=== PATIENT | female | born 1970 | race American Indian/Alaskan Native ===

== ENCOUNTER 2017-01-17 11:52 | Inpatient (IN) | payer BC ==
--- NOTE | 2017-01-17 12:50 | C.PDOC ---
History Of Present Illness 46 y/o female presents to the ED with complains of lower back pain radiating to bilateral legs since yesterday morning. Pt also reports cough, fever, malaise since last night. Pt took ibuprofen at home. Denies numbness, weakness, urinary incontinence or any other complaints. Time Seen by Provider: 01/17/17 12:34 Chief Complaint (Nursing): Flu-like Symptoms History Per: Patient History/Exam Limitations: no limitations Onset/Duration Of Symptoms: Hrs Current Symptoms Are (Timing): Still Present Sick Contacts (Context): None Associated Symptoms: Fever, Cough. denies: Vomiting, Diarrhea Severity: Mild Recent travel outside of the [place]: No Past Medical History Reviewed: Historical Data, Nursing Documentation, Vital Signs Vital Signs: Last Vital Signs Temp 97.2 F L 01/18/17 07:22 Pulse 88 01/18/17 12:16 Resp 20 01/18/17 07:22 BP 126/72 01/18/17 07:22 Pulse Ox 97 01/18/17 07:22 - Medical History PMH: Gastritis, HTN Surgical History: Cholecystectomy Family History: States: Unknown Family Hx - Social History Hx Tobacco Use: No Hx Alcohol Use: No Hx Substance Use: No - Immunization History Hx Tetanus Toxoid Vaccination: No Hx Influenza Vaccination: No Hx Pneumococcal Vaccination: No Review Of Systems Except As Marked, All Systems Reviewed And Found Negative. Constitutional: Positive for: Fever, Malaise Cardiovascular: Negative for: Chest Pain Respiratory: Positive for: Cough. Negative for: Shortness of Breath Genitourinary: Negative for: Incontinence Musculoskeletal: Positive for: Back Pain. Negative for: Neck Pain Neurological: Negative for: Weakness, Numbness Physical Exam - Physical Exam Appears: Non-toxic, No Acute Distress Skin: Warm, Dry, No Rash Head: Atraumatic, Normacephalic Eye(s): bilateral: PERRL Ear(s): Bilateral: Normal Nose: No Epistaxis Oral Mucosa: Moist Tongue: No Swelling Lips: No Swelling Throat: No Erythema, No Exudate Neck: Normal ROM, Supple Cardiovascular: Rhythm Regular, No Murmur Respiratory: Normal Breath Sounds, No Decreased Breath Sounds, No Accessory Muscle Use, No Rales, No Rhonchi, No Wheezing Gastrointestinal/Abdominal: Soft, No Tenderness, No Distention, No Guarding, No Rebound Back: Vertebral Tenderness (lumbar), Paraspinal Tenderness (diffuse lower back) Extremity: No Swelling Extremity: Bilateral: Atraumatic Pulses: Left Radial: Normal, Right Radial: Normal Neurological/Psych: Oriented x3, Normal Speech, Normal Cranial Nerves, No Cerebellar Signs, Normal Motor, Normal Sensation, Normal Reflexes, Other (no focal deficits) ED Course And Treatment - Laboratory Results Result Diagrams: 01/18/17 08:13 01/18/17 08:13 O2 Sat by Pulse Oximetry: 95 (room air) Pulse Ox Interpretation: Normal - Other Rad Lumbar spine XR X-Ray: Viewed By Me, Read By Radiologist Interpretation: Accession No. : [id number]. Patient Name / ID : JARRELL PHELAN / [id number]. Exam Date : 01/17/2017 14:14:42 ( Approved ). Study Comment : Sex / Age : F / 46Y. Creator : Tonny Greene MD. Dictator : Tonny Greene MD. Shirt Trimmer : Financial Management : Tonny Greene MD. Approver2 : Report Date : 01/17/2017 14:45:12. My Comment : . PROCEDURE: Radiographs of the Lumbar Spine. HISTORY: pain fever. COMPARISON: No prior. FINDINGS: BONES: Vertebral bodies maintained in height. Transverse processes and posterior elements are intact. There is lucency seen projecting on the L3 vertebra, likely bowel gas. Mild dextroscoliosis. No listhesis. DISC SPACES: Disc spaces maintained in height. OTHER FINDINGS: Calcified uterine fibroid. IMPRESSION: Mild dextroscoliosis. Calcified uterine fibroid. No evidence of fracture or degenerative disc disease. CXR X-Ray: Viewed By Me, Read By Radiologist Interpretation: Accession No. : [id number]. Patient Name / ID : JARRELL PHELAN / [id number]. Exam Date : 01/17/2017 14:14:34 ( Approved ). Study Comment : Sex / Age : F / 46Y. Creator : Canelo Mai MD. Dictator : Canelo Mai MD. Shirt Trimmer : Financial Management : Canelo Mai MD. Approver2 : Report Date : 01/17/2017 14:45:21. My Comment : . HISTORY: cough fever. COMPARISON: 10/04/2016. TECHNIQUE: Chest PA and lateral. FINDINGS: LUNGS: No active pulmonary disease. PLEURA: No significant pleural effusion identified. No pneumothorax apparent. CARDIOVASCULAR: No radiographic findings to suggest acute or significant cardiovascular disease. OSSEOUS STRUCTURES: No significant abnormalities. VISUALIZED UPPER ABDOMEN: Normal. OTHER FINDINGS: None. IMPRESSION: No active disease. No significant interval change compared to the prior examination(s). Progress Note: Plan: labs, CXR, XR lumbar, UA, toradol, tylenol, IV fluids Medical Decision Making Medical Decision Makin mobile service rv technician called pt will not fit in the scanner. will order CT instead. [address] Branham will admit req ID consulte Dr Webb [id number] Webb pt reports she had received "injections" in her neck before for pain, the last was beginning of November. she denies any neck pain at this time. ADDENDUM: Study performed following intravenous administration 100 cc Omnipaque 350. Total exam DLP 1799.25 mGy per cm. [ Addendum Report Added by Canelo Mai MD at 01/17/2017 17:11:46 ] PROCEDURE: CT Lumbar Spine without contrast HISTORY: back pain fever eval for abscess COMPARISON: None. TECHNIQUE: Axial computed tomography images were obtained of the lumbar spine without the use of intravenous contrast. Coronal and sagittal reformatted images were created and reviewed. Radiation dose: Total exam DLP = mGy-cm. This CT exam was performed using one or more of the following dose reduction techniques: Automated exposure control, adjustment of the mA and/or kV according to patient size, and/or use of iterative reconstruction technique. FINDINGS: VERTEBRAE: Unremarkable. No fracture. Normal alignment. DISCS/SPINAL CANAL/NEURAL FORAMINA: L1-2: Unremarkable. L2-3: Unremarkable. L3-4: Unremarkable. L4-5: Unremarkable. L5-S1: Unremarkable. PARASPINAL SOFT TISSUES: Unremarkable. OTHER FINDINGS: Enlarged heterogeneous uterus, anteverted with large calcified fibroid measuring 4.2 cm. IMPRESSION: Unremarkable CT of Lumbar Spine. Adjacent paravertebral structures as visualized within normal limits including kidneys, pancreas, urinary bladder. Disposition - Disposition Disposition: HOSPITALIZED Disposition Time: 17:37 Condition: STABLE - Clinical Impression Clinical Impression: leukocytosis bandemia hypokalemia - Scribe Statement The provider has reviewed the documentation as recorded by the Saúl Zhang Provider Attestation: All medical record entries made by the Saúl were at my direction and personally dictated by me. I have reviewed the chart and agree that the record accurately reflects my personal performance of the history, physical exam, medical decision making, and the department course for this patient. I have also personally directed, reviewed, and agree with the discharge instructions and disposition.
[2017-01-17] MEDS ORDERED: Sodium Chloride 0.9% 1,000 ML IV ONE ×2 (13:21→14:10)
[2017-01-17] MEDS ORDERED: Sodium Chloride 0.9% 250 ML IV ONE (13:31)
[2017-01-17 14:01] LABS: VENOUS BLOOD GAS BASE EXCESS 6.1 mmol/L (0.0-2.0); VENOUS BLOOD GAS PCO2 46 mmHg (40-60); VENOUS BLOOD PH 7.44 (7.32-7.43)
[2017-01-17 14:02] LABS: BASO # 0.1 K/uL (0.0-0.2); BASO % 0.3 % (0.0-2.0); HEMATOCRIT 37.5 % (34.0-47.0); LYMPH # 0.7 K/uL (1.0-4.3); LYMPH % 3.1 % (20.0-40.0); MEAN CELL VOLUME 85.8 fL (81.0-99.0); MEAN CORPUSCULAR HGB CONC 33.7 g/dL (33.0-37.0); MEAN PLATELET VOLUME 7.9 fL (7.2-11.7); MONO # 0.9 K/uL (0.0-0.8); PLATELET COUNT 289 K/uL (130-400); RED CELL DISTRIBUTION WIDTH 13.8 % (11.5-14.5); WHITE BLOOD COUNT 22.2 K/uL (4.8-10.8)
[2017-01-17 14:10] LABS: RBC URINE 18 /hpf (0-3); URINE BACTERIA RARE (<OCC); URINE BILIRUBIN NEGATIVE (NEGATIVE); URINE BLOOD 1+ (NEGATIVE); URINE COLOR Yellow (YELLOW); URINE GLUCOSE (UA) 1+ mg/dL (Normal); URINE KETONE NEGATIVE (NEGATIVE); URINE LEUKOCYTE ESTERASE NEG Leu/uL (Negative); URINE PROTEIN NEGATIVE (NEGATIVE); WBC URINE 1 /hpf (0-5)
[2017-01-17 14:14] LABS: CHLORIDE 95 mmol/L (98-107)
[2017-01-17 14:15] LABS: POTASSIUM 3.2 mmol/L (3.6-5.2); SODIUM 133 mmol/L (132-148)
[2017-01-17 14:17] LABS: ALB/GLOB RATIO 0.9 (1.0-2.1); ALKALINE PHOSPHATASE 97 U/L (38-126); AST/SGOT 25 U/L (14-36); BILIRUBIN,TOTAL 0.8 mg/dL (0.2-1.3); BLOOD UREA NITROGEN 8 mg/dL (7-17); CARBON DIOXIDE 27 mmol/L (22-30); GFR AFRICAN-AMERICAN > 60; GLUCOSE,RANDOM 193 mg/dL (65-105); TOTAL PROTEIN 7.7 g/dL (6.3-8.3)
[2017-01-17 14:18] LABS: ALT/SGPT 28 U/L (9-52)
[2017-01-17 14:33] LABS: REACTIVE LYMPHOCYTES 1 % (0-0); TOTAL CELLS COUNTED 100
[2017-01-17 14:34] LABS: NEUTROPHIL 77 % (50-75)
[2017-01-17 14:35] LABS: GIANT PLATELETS PRESENT
--- NOTE | 2017-01-17 14:47 | RAD ---
HISTORY: cough fever COMPARISON: 10/04/2016. TECHNIQUE: Chest PA and lateral FINDINGS: LUNGS: No active pulmonary disease. PLEURA: No significant pleural effusion identified. No pneumothorax apparent. CARDIOVASCULAR: No radiographic findings to suggest acute or significant cardiovascular disease. OSSEOUS STRUCTURES: No significant abnormalities. VISUALIZED UPPER ABDOMEN: Normal. OTHER FINDINGS: None. IMPRESSION: No active disease. No significant interval change compared to the prior examination(s).
--- NOTE | 2017-01-17 14:47 | RAD ---
PROCEDURE: Radiographs of the Lumbar Spine. HISTORY: pain fever COMPARISON: No prior. FINDINGS: BONES: Vertebral bodies maintained in height. Transverse processes and posterior elements are intact. There is lucency seen projecting on the L3 vertebra, likely bowel gas. Mild dextroscoliosis. No listhesis. DISC SPACES: Disc spaces maintained in height. OTHER FINDINGS: Calcified uterine fibroid. IMPRESSION: Mild dextroscoliosis. Calcified uterine fibroid. No evidence of fracture or degenerative disc disease.
[2017-01-17 15:06] LABS: ERYTHROCYTE SEDIMENTATION RATE 40 mm/hr (0-20)
[2017-01-17 16:17] LABS: DRAW SITE VENOUS; VENOUS BLOOD GAS BASE EXCESS 5.3 mmol/L (0.0-2.0); VENOUS BLOOD GAS PCO2 49 mmHg (40-60); VENOUS BLOOD PH 7.41 (7.32-7.43)
[2017-01-17] MEDS ORDERED: Iohexol 350mg/ml 100 ML ONE (16:18)
[2017-01-17 16:33] LABS: VENOUS BLOOD GAS BASE EXCESS 4.5 mmol/L (0.0-2.0); VENOUS BLOOD GAS PCO2 49 mmHg (40-60)
--- NOTE | 2017-01-17 16:58 | CT ---
PROCEDURE: CT Lumbar Spine without contrast HISTORY: back pain fever eval for abscess COMPARISON: None. TECHNIQUE: Axial computed tomography images were obtained of the lumbar spine without the use of intravenous contrast. Coronal and sagittal reformatted images were created and reviewed. Radiation dose: Total exam DLP = mGy-cm. This CT exam was performed using one or more of the following dose reduction techniques: Automated exposure control, adjustment of the mA and/or kV according to patient size, and/or use of iterative reconstruction technique. FINDINGS: VERTEBRAE: Unremarkable. No fracture. Normal alignment. DISCS/SPINAL CANAL/NEURAL FORAMINA: L1-2: Unremarkable. L2-3: Unremarkable. L3-4: Unremarkable. L4-5: Unremarkable. L5-S1: Unremarkable. PARASPINAL SOFT TISSUES: Unremarkable. OTHER FINDINGS: Enlarged heterogeneous uterus, anteverted with large calcified fibroid measuring 4.2 cm. IMPRESSION: Unremarkable CT of Lumbar Spine. Adjacent paravertebral structures as visualized within normal limits including kidneys, pancreas, urinary bladder.
[2017-01-17] MEDS ORDERED: Azithromycin 500 MG in Sodium Chloride 0.9% 250 ML IVPB STA (17:21)
[2017-01-17] MEDS ORDERED: cefTRIAXone IV 1 gm in Dextros 50 ML IVPB ONE (17:27)
[2017-01-17] MEDS ORDERED: Azithromycin 500mg/250ML NS 500 MG/250 ML BAG IVPB ONE (17:49)
[2017-01-17] MEDS ORDERED: Potassium Chloride 20 mEq ER Tab PO STA (17:55)
[2017-01-17] MEDS ORDERED: Potassium Chloride 20 mEq ER Tab PO ONE (18:27)
[2017-01-18] MEDS: cefTRIAXone IV 1 gm in Dextros 50 ML IVPB SCH ×2 (05:22→17:40)
[2017-01-18 08:24] LABS: BASO % 0.2 % (0.0-2.0); HEMATOCRIT 33.1 % (34.0-47.0); LYMPH # 1.3 K/uL (1.0-4.3); LYMPH % 10.6 % (20.0-40.0); MEAN CELL VOLUME 85.4 fL (81.0-99.0); MEAN CORPUSCULAR HEMOGLOBIN 29.1 pg (27.0-31.0); MEAN PLATELET VOLUME 7.7 fL (7.2-11.7); MONO # 0.8 K/uL (0.0-0.8); MONO % 6.8 % (0.0-10.0); NRBC % 0.2 % (0.0-2.0); RED CELL DISTRIBUTION WIDTH 14.1 % (11.5-14.5)
[2017-01-18 08:30] LABS: CHLORIDE 99 mmol/L (98-107); POTASSIUM 3.3 mmol/L (3.6-5.2); SODIUM 137 mmol/L (132-148)
[2017-01-18 08:32] LABS: ALB/GLOB RATIO 0.8 (1.0-2.1); AST/SGOT 18 U/L (14-36); BILIRUBIN,TOTAL 0.6 mg/dL (0.2-1.3); CARBON DIOXIDE 30 mmol/L (22-30); GFR AFRICAN-AMERICAN > 60; TOTAL PROTEIN 6.7 g/dL (6.3-8.3)
[2017-01-18 08:33] LABS: ALKALINE PHOSPHATASE 85 U/L (38-126); ALT/SGPT 25 U/L (9-52); BLOOD UREA NITROGEN 6 mg/dL (7-17); CALCIUM 8.4 mg/dl (8.6-10.4); GLUCOSE,RANDOM 128 mg/dL (65-105)
[2017-01-18] MEDS: Pantoprazole 40 mg EC Tab PO SCH (09:31)
[2017-01-18] MEDS: Metoprolol Succinate 50 mg XL Tab PO SCH (09:31)
[2017-01-18] MEDS: Potassium Chloride 20 mEq ER Tab PO SCH ×2 (09:31→17:39)
[2017-01-18] MEDS: Enoxaparin 40 mg Syringe SC SCH (10:15)
--- NOTE | 2017-01-18 14:24 | CP.PCM.HP ---
Past Patient History - Past Social History Smoking Status: Never Smoked - CARDIAC Hx Hypertension: Yes - MUSCULOSKELETAL/RHEUMATOLOGICAL Hx Falls: No - GASTROINTESTINAL Hx Gastritis: Yes - PSYCHIATRIC Hx Substance Use: No - SURGICAL HISTORY Hx Cholecystectomy: Yes - ANESTHESIA Hx Anesthesia: Yes Hx Anesthesia Reactions: No Meds Allergies/Adverse Reactions: Allergies Allergy/AdvReac Type Severity Reaction Status Date / Time No Known Allergies Allergy Verified 01/17/17 12:16 Results - Vital Signs Recent Vital Signs: Last Vital Signs Temp 97.2 F L 01/18/17 07:22 Pulse 88 01/18/17 12:16 Resp 20 01/18/17 07:22 BP 126/72 01/18/17 07:22 Pulse Ox 95 01/18/17 13:40 - Labs Result Diagrams: 01/18/17 08:13 01/18/17 08:13 Labs: Laboratory Results - last 24 hr 01/18/17 01/18/17 08:13 08:13 WBC 12.0 H RBC 3.87 Hgb 11.3 Hct 33.1 L MCV 85.4 MCH 29.1 MCHC 34.0 RDW 14.1 Plt Count 275 MPV 7.7 Neut % (Auto) 82.4 H Lymph % (Auto) 10.6 L [place] % (Auto) 6.8 Eos % (Auto) 0.0 Baso % (Auto) 0.2 Neut # 9.9 H Lymph # 1.3 [place] # 0.8 Eos # 0.0 Baso # 0.0 Sodium 137 Potassium 3.3 L Chloride 99 Carbon Dioxide 30 Anion Gap 11 BUN 6 L Creatinine 0.6 L Est GFR ( Amer) > 60 Est GFR (Non-Af Amer) > 60 Random Glucose 128 H Calcium 8.4 L Total Bilirubin 0.6 AST 18 ALT 25 Alkaline Phosphatase 85 Total Protein 6.7 Albumin 2.9 L Globulin 3.8 Albumin/Globulin Ratio 0.8 L Assessment & Plan - Assessment and Plan (Free Text) Plan: clinically same iv antibitic monitor for fever or wbc as ordered
[2017-01-19] MEDS: cefTRIAXone IV 1 gm in Dextros 50 ML IVPB SCH ×2 (04:56→17:14)
[2017-01-19] MEDS: Enoxaparin 40 mg Syringe SC SCH (09:32)
[2017-01-19] MEDS: Metoprolol Succinate 50 mg XL Tab PO SCH (09:32)
[2017-01-19] MEDS: Potassium Chloride 20 mEq ER Tab PO SCH ×2 (09:32→17:31)
[2017-01-19] MEDS: Pantoprazole 40 mg EC Tab PO SCH (09:32)
--- NOTE | 2017-01-19 13:32 | CP.PCM.PN ---
Subjective - Date & Time of Evaluation Date of Evaluation: 01/19/17 Time of Evaluation: 14:00 - Subjective Subjective: clinically same Objective - Vital Signs/Intake and Output Vital Signs (last 24 hours): Temp Pulse Resp BP Pulse Ox 98.2 F 62 20 114/74 96 01/19/17 08:25 01/19/17 08:25 01/19/17 08:25 01/19/17 08:25 01/19/17 08:25 - Medications Medications: Current Medications Acetaminophen (Tylenol 325mg Tab) 650 mg PO Q8 PRN PRN Reason: fever above 101 Last Admin: 01/19/17 07:03 Dose: 650 mg Enoxaparin Sodium (Lovenox) 40 mg SC DAILY [facility] Last Admin: 01/19/17 09:32 Dose: 40 mg Hydrochlorothiazide (Hydrodiuril) 25 mg PO DAILY [facility] Last Admin: 01/18/17 10:18 Dose: Not Given Ceftriaxone Sodium (Rocephin Iv 1 Gm Duplex) 50 mls @ 100 mls/hr IVPB Q12H [facility] Last Admin: 01/19/17 04:56 Dose: 100 mls/hr Ketorolac Tromethamine (Toradol) 15 mg IVP Q8 [facility] Last Admin: 01/19/17 09:34 Dose: Not Given Metoprolol Succinate (Toprol Xl) 50 mg PO DAILY [facility] Last Admin: 01/19/17 09:32 Dose: 50 mg Pantoprazole Sodium (Protonix Ec Tab) 40 mg PO DAILY [facility] Last Admin: 01/19/17 09:32 Dose: 40 mg Potassium Chloride (K-Dur 20 Meq Er Tab) 20 meq PO BID [facility] Last Admin: 01/19/17 09:32 Dose: 20 meq - Labs Labs: 01/18/17 08:13 01/18/17 08:13 - Constitutional Appears: Well - Head Exam Head Exam: ATRAUMATIC, NORMAL INSPECTION, NORMOCEPHALIC - Eye Exam Eye Exam: EOMI, Normal appearance, PERRL Pupil Exam: NORMAL ACCOMODATION, PERRL - ENT Exam ENT Exam: Mucous Membranes Moist, Normal Exam - Neck Exam Neck Exam: Full ROM, Normal Inspection. absent: Lymphadenopathy - Respiratory Exam Respiratory Exam: Decreased Breath Sounds - Cardiovascular Exam Cardiovascular Exam: REGULAR RHYTHM, +S1, +S2 - GI/Abdominal Exam GI & Abdominal Exam: Soft, Diminished Bowel Sounds - Rectal Exam Rectal Exam: Deferred
[2017-01-19 14:00] LABS: BASO % 0.3 % (0.0-2.0); EOS # 0.1 K/uL (0.0-0.7); HEMATOCRIT 34.5 % (34.0-47.0); LYMPH # 2.6 K/uL (1.0-4.3); LYMPH % 36.9 % (20.0-40.0); MEAN CORPUSCULAR HEMOGLOBIN 29.1 pg (27.0-31.0); MEAN CORPUSCULAR HGB CONC 33.9 g/dL (33.0-37.0); MEAN PLATELET VOLUME 8.1 fL (7.2-11.7); MONO # 0.8 K/uL (0.0-0.8); MONO % 11.9 % (0.0-10.0); NRBC % 0.1 % (0.0-2.0); RED CELL DISTRIBUTION WIDTH 14.1 % (11.5-14.5); WHITE BLOOD COUNT 7.1 K/uL (4.8-10.8)
[2017-01-19 14:10] LABS: CHLORIDE 99 mmol/L (98-107); SODIUM 137 mmol/L (132-148)
[2017-01-19 14:11] LABS: POTASSIUM 3.4 mmol/L (3.6-5.2)
[2017-01-19 14:13] LABS: GFR AFRICAN-AMERICAN > 60
[2017-01-19 14:14] LABS: BLOOD UREA NITROGEN 6 mg/dL (7-17); CALCIUM 8.6 mg/dl (8.6-10.4); CARBON DIOXIDE 30 mmol/L (22-30); GLUCOSE,RANDOM 148 mg/dL (65-105)
--- NOTE | 2017-01-19 16:40 | CP.PCM.CON ---
History of Present Illness - History of Present Illness History of Present Illness: admitted with flu like symptoms and back pain cultures pending iv rx in poorgress Review of Systems - Constitutional Constitutional: As Per HPI - EENT Eyes: absent: As Per HPI, Blind Spots, Blurred Vision, Change in Vision, Decreased Night Vision, Diplopia, Discharge, Dry Eye, Exophthalmos, Floaters, Irritation, Itchy Eyes, Loss of Peripheral Vision, Pain, Photophobia, Requires Corrective Lenses, Sees Flashes, Spots in Vision, Tunnel Vision, Other Visual Disturbances, Loss of Vision, Other Ears: absent: As Per HPI, Decreased Hearing, Ear Discharge, Ear Pain, Tinnitus, Abnormal Hearing, Disequilibrium, Dizziness, Other Nose/Mouth/Throat: absent: As Per HPI, Epistaxis, Nasal Congestion, Nasal Discharge, Nasal Obstruction, Nasal Trauma, Nose Pain, Post Nasal Drip, Sinus Pain, Sinus Pressure, Bleeding Gums, Change in Voice, Dental Pain, Dry Mouth, Dysphagia, Halitosis, Hoarsness, Lip Swelling, Mouth Lesions, Mouth Pain, Odynophagia, Sore Throat, Throat Swelling, Tongue Swelling, Facial Pain, Neck Pain, Neck Mass, Other - Breasts Breasts: absent: As Per HPI, Change in Shape, Mass, Pain, Nipple Discharge, Nipple Inversion, Skin Changes, Swelling, Other - Cardiovascular Cardiovascular: absent: As Per HPI, Acrocyanosis, Chest Pain, Chest Pain at Rest , Chest Pain with Activity, Claudication, Diaphoresis, Dyspnea, Dyspnea on Exertion, Edema, Irregular Heart Rhythm, Pain Radiating to Arm/Neck/Jaw, Leg Edema, Leg Ulcers, Lightheadedness, Orthopnea, Palpitations, Paroxysmal Nocturnal Dyspnea, Pedal Edema, Radiating Pain, Rapid Heart Rate, Slow Heart Rate, Syncope, Other - Respiratory Respiratory: absent: As Per HPI, Cough, Dyspnea, Hemoptysis, Dyspnea on Exertion , Wheezing, Snoring, Stridor, Pain on Inspiration, Chest Congestion, Excessive Mucous Production, Change in Mucous Color, Pain with Coughing, Other - Gastrointestinal Gastrointestinal: absent: As Per HPI, Abdominal Pain, Belching, Bloating, Change in Bowel Habits, Change in Stool Character, Coffee Ground Emesis, Constipation, Cramping, Diarrhea, Dyspepsia, Dysphagia, Early Satiety, Excessive Flatus, Fecal Incontinence, Heartburn, Hematemesis, Hematochezia, Loose Stools, Melena, Nausea, Odynophagia, Temesmus, Vomiting, Other - Genitourinary Genitourinary: absent: As Per HPI, Change in Urinary Stream, Difficulty Urinating, Dysuria, Flank Pain, Hematuria, Pyuria, Nocturia, Urinary Incontinence, Urinary Frequency, Urinary Hesitance, Urinary Urgency, Voiding Freq/Small Amts, Freq UTI, Hx Renal/Bladder Calculi, Hx /Renal Surgery, Bladder Distension, Other - Reproductive: Female Reproductive:Female: absent: As Per HPI, Amenorrhea, Amenorrhea/ Control, Currently Menstual, Cycle <21 Days, Cycle >35 Days, Cycle Variable, Menses 1-7 Days, Menses >/= 8 Days, Menses Variable, Cycle > 4 Weeks Between, No Menses for 6 Months, Heavy Menses, Light Menses, Normal Menses, Spotting Between Cycles , S/P Hysterectomy, Menopausal, Post Menopausal, Premenarche, Abnormal Vaginal Bleeding, Dysmenorrhea, Dyspareunia, Genital Lesions, Genital Pruritis, Pelvic Pain, Prolapse Symptoms, Sexual Dysfunction, Vaginal Discharge, Vaginal Dryness , Vaginal Odor, Vaginal Pruritis, Other - Menstruation Menstruation: absent: As Per HPI, Amenorrhea, Amenorrhea/ Control, Currently Menstual, Cycle <21 Days, Cycle >35 Days, Cycle Variable, Menses 1-7 Days, Menses >/= 8 Days, Menses Variable, Cycle > 4 Weeks Between, No Menses for 6 Months, Heavy Menses, Light Menses, Normal Menses, Spotting Between Cycles , S/P Hysterectomy, Menopausal, Post Menopausal, Premenarche, Abnormal Vaginal Bleeding, Dysmenorrhea, Other - Musculoskeletal Musculoskeletal: As Per HPI - Integumentary Integumentary: absent: As Per HPI, Acne, Alopecia, Bleeding Lesions, Change in Hair, Change in Nails, Change in Pigmentation, Changing Lesions, Dry Skin, Erythema, Furuncle, Hirsutism, Lesions, New Lesions, Non-Healing Lesions, Photosensitivity, Pruritus, Rash, Skin Pain, Skin Ulcer, Sores, Striae, Swelling , Unusual Bruising, Wounds, Jaundice, Other - Neurological Neurological: absent: As Per HPI, Abnormal Gait, Abnormal Hearing, Abnormal Movements, Abnormal Speech, Behavioral Changes, Burning Sensations, Confusion, Convulsions, Disequilibrium, Dizziness, Numbness, Focal Weakness, Frequent Falls , Headaches, Lack of Coordination, Loss of Vision, Memory Loss, Paresthesias, Radicular Pain, Restless Legs, Sensory Deficit, Syncope, Tingling, Tremor, Vertigo, Weakness, Other Visual Disturbances, Other - Psychiatric Psychiatric: absent: As Per HPI, Abnormal Sleep Pattern, Anhedonia, Anxiety, Auditory Hallucinations, Behavioral Changes, Change in Appetite, Change in Libido, Confusion, Depression, Difficulty Concentrating, Hallucinations, Homicidal Ideation, Hopelessness, Irritability, Memory Loss, Mood Swings, Panic Attacks, Paranoia, Suicidal Ideation, Visual Hallucinations, Tactile Hallucinations, Other - Endocrine Endocrine: absent: As Per HPI, Change in Body Appearance, Change in Libido, Cold Intolorance, Deepening of Voice, Excessive Sweating, Fatigue, Flushing, Heat Intolorance, Increase in Ring/Shoe/Hat Size, Palpitations, Polydipsia, Polyphagia, Polyuria, Other - Hematologic/Lymphatic Hematologic: absent: As Per HPI, Easy Bleeding, Easy Bruising, Lymphadenopathy, Other Past Patient History - Past Social History Smoking Status: Never Smoked - CARDIAC Hx Hypertension: Yes - MUSCULOSKELETAL/RHEUMATOLOGICAL Hx Falls: No - GASTROINTESTINAL Hx Gastritis: Yes - PSYCHIATRIC Hx Substance Use: No - SURGICAL HISTORY Hx Cholecystectomy: Yes - ANESTHESIA Hx Anesthesia: Yes Hx Anesthesia Reactions: No Meds Allergies/Adverse Reactions: Allergies Allergy/AdvReac Type Severity Reaction Status Date / Time No Known Allergies Allergy Verified 01/17/17 12:16 - Medications Medications: Current Medications Acetaminophen (Tylenol 325mg Tab) 650 mg PO Q8 PRN PRN Reason: fever above 101 Last Admin: 01/19/17 07:03 Dose: 650 mg Enoxaparin Sodium (Lovenox) 40 mg SC DAILY [facility] Last Admin: 01/19/17 09:32 Dose: 40 mg Hydrochlorothiazide (Hydrodiuril) 25 mg PO DAILY [facility] Last Admin: 01/18/17 10:18 Dose: Not Given Ceftriaxone Sodium (Rocephin Iv 1 Gm Duplex) 50 mls @ 100 mls/hr IVPB Q12H [facility] Last Admin: 01/19/17 04:56 Dose: 100 mls/hr Ketorolac Tromethamine (Toradol) 15 mg IVP Q8 [facility] Last Admin: 01/19/17 09:34 Dose: Not Given Metoprolol Succinate (Toprol Xl) 50 mg PO DAILY [facility] Last Admin: 01/19/17 09:32 Dose: 50 mg Pantoprazole Sodium (Protonix Ec Tab) 40 mg PO DAILY [facility] Last Admin: 01/19/17 09:32 Dose: 40 mg Potassium Chloride (K-Dur 20 Meq Er Tab) 20 meq PO BID [facility] Last Admin: 01/19/17 09:32 Dose: 20 meq Physical Exam - Constitutional Appears: Non-toxic, Chronically Ill - Head Exam Head Exam: ATRAUMATIC, NORMAL INSPECTION, NORMOCEPHALIC - Eye Exam Eye Exam: EOMI, PERRL. absent: Scleral icterus - ENT Exam ENT Exam: Mucous Membranes Dry, Normal External Ear Exam - Neck Exam Neck exam: Negative for: Lymphadenopathy, Thyromegaly - Respiratory Exam Respiratory Exam: Decreased Breath Sounds, Clear to Auscultation Bilateral - Cardiovascular Exam Cardiovascular Exam: REGULAR RHYTHM, +S1, +S2 - GI/Abdominal Exam GI & Abdominal Exam: Diminished Bowel Sounds, Soft. absent: Guarding, Rebound, Rigid, Tenderness - Rectal Exam Rectal Exam: Deferred - Exam Exam: NORMAL INSPECTION - Extremities Exam Extremities exam: Negative for: pedal edema - Back Exam Back exam: absent: CVA tenderness (L), CVA tenderness (R), paraspinal tenderness - Neurological Exam Neurological exam: Alert, CN II-XII Intact, Oriented x3, Reflexes Normal - Psychiatric Exam Psychiatric exam: Normal Mood - Skin Skin Exam: Dry, Intact Results - Vital Signs Recent Vital Signs: Last Vital Signs Temp 98.2 F 01/19/17 08:25 Pulse 62 01/19/17 08:25 Resp 20 01/19/17 08:25 BP 114/74 01/19/17 08:25 Pulse Ox 96 01/19/17 08:25 - Labs Result Diagrams: 01/19/17 13:54 01/19/17 13:54 Labs: Laboratory Results - last 24 hr 01/19/17 01/19/17 13:54 13:54 WBC 7.1 RBC 4.01 Hgb 11.7 Hct 34.5 MCV 86.0 MCH 29.1 MCHC 33.9 RDW 14.1 Plt Count 267 MPV 8.1 Neut % (Auto) 49.9 L Lymph % (Auto) 36.9 [place] % (Auto) 11.9 H Eos % (Auto) 1.0 Baso % (Auto) 0.3 Neut # 3.6 Lymph # 2.6 [place] # 0.8 Eos # 0.1 Baso # 0.0 Sodium 137 Potassium 3.4 L Chloride 99 Carbon Dioxide 30 Anion Gap 11 BUN 6 L Creatinine 0.6 L Est GFR ( Amer) > 60 Est GFR (Non-Af Amer) > 60 Random Glucose 148 H Calcium 8.6 Assessment & Plan (1) Dizziness Status: Acute (2) Lightheadedness Status: Acute - Assessment and Plan (Free Text) Assessment: r/o sepsis may need gi eval cont iv rx wbc trernding down
[2017-01-20] MEDS: cefTRIAXone IV 1 gm in Dextros 50 ML IVPB SCH ×2 (05:34→17:06)
[2017-01-20] MEDS: Enoxaparin 40 mg Syringe SC SCH (09:28)
[2017-01-20] MEDS: Metoprolol Succinate 50 mg XL Tab PO SCH (09:29)
[2017-01-20] MEDS: Potassium Chloride 20 mEq ER Tab PO SCH ×2 (09:29→17:06)
[2017-01-20] MEDS: Pantoprazole 40 mg EC Tab PO SCH (09:29)
[2017-01-20 16:35] VITALS: BP 132/73; PULSE 62; RESP 18; TEMP 98.2; O2SAT 98
--- NOTE | 2017-01-20 18:23 | CP.PCM.PN ---
Subjective - Date & Time of Evaluation Date of Evaluation: 01/20/17 Time of Evaluation: 13:20 - Subjective Subjective: clinically same Objective - Vital Signs/Intake and Output Vital Signs (last 24 hours): Temp Pulse Resp BP Pulse Ox 98.2 F 62 18 132/73 98 01/20/17 15:34 01/20/17 15:34 01/20/17 15:34 01/20/17 15:34 01/20/17 15:34 Intake and Output: 01/20/17 01/20/17 06:59 18:59 Intake Total 450 600 Balance 450 600 - Medications Medications: Current Medications Acetaminophen (Tylenol 325mg Tab) 650 mg PO Q8 PRN PRN Reason: fever above 101 Last Admin: 01/20/17 12:10 Dose: 650 mg Enoxaparin Sodium (Lovenox) 40 mg SC DAILY [facility] Last Admin: 01/20/17 09:28 Dose: 40 mg Hydrochlorothiazide (Hydrodiuril) 25 mg PO DAILY [facility] Last Admin: 01/20/17 09:29 Dose: Not Given Ceftriaxone Sodium (Rocephin Iv 1 Gm Duplex) 50 mls @ 100 mls/hr IVPB Q12H [facility] Last Admin: 01/20/17 17:06 Dose: 100 mls/hr Metoprolol Succinate (Toprol Xl) 50 mg PO DAILY [facility] Last Admin: 01/20/17 09:29 Dose: 50 mg Pantoprazole Sodium (Protonix Ec Tab) 40 mg PO DAILY [facility] Last Admin: 01/20/17 09:29 Dose: 40 mg Potassium Chloride (K-Dur 20 Meq Er Tab) 20 meq PO BID [facility] Last Admin: 01/20/17 17:06 Dose: 20 meq - Labs Labs: 01/19/17 13:54 01/19/17 13:54 - Constitutional Appears: Well - Head Exam Head Exam: ATRAUMATIC, NORMAL INSPECTION, NORMOCEPHALIC - Eye Exam Eye Exam: EOMI, Normal appearance, PERRL Pupil Exam: NORMAL ACCOMODATION, PERRL - ENT Exam ENT Exam: Mucous Membranes Moist, Normal Exam - Neck Exam Neck Exam: Full ROM, Normal Inspection. absent: Lymphadenopathy - Respiratory Exam Respiratory Exam: Decreased Breath Sounds - Cardiovascular Exam Cardiovascular Exam: REGULAR RHYTHM, +S1, +S2 - GI/Abdominal Exam GI & Abdominal Exam: Soft, Diminished Bowel Sounds - Rectal Exam Rectal Exam: Deferred
--- NOTE | 2017-01-21 12:44 | CARD ---
APPROVED REPORT EKG Measurement Heart [id number] ND [id number] <Conclusion> Sinus tachycardia Otherwise normal ECG
--- NOTE | 2017-01-29 07:37 | PQF PNEUMO ---
This form is a permanent part of the medical record Dr. Branham, Your discharge summary states Pneumonia. However, chest x-ray failed to show infiltrates or active pulmonary disease. Please clarify. Clarification of your documentation is requested to better reflect the severity of illness and intensity of treatment of your patient. Indicators present [] Documented diagnosis of pneumonia [] X-ray findings: [] Positive Sputum cultures [] Cough w/ fever [] Abnormal lungs sounds [] Poor gag reflex [] Speech consults/swallow evaluation [] Vent dependence [] Other: [] Location in the medical record that reflects the above clinical findings: [] Treatment Provided: [] PHYSICIAN'S RESPONSE - NO PNEUMONIA. PATIENT HAS ACUTE BRONCHITIS. Based on your medical judgment of the clinical indicators outlined above, are you treating this patient for a known or suspected: [] Aspiration pneumonia [] Community acquired pneumonia [] Ventilator associated pneumonia [] Viral pneumonia [] Bacterial pneumonia Please specify organism: [] [] Other, please indicate [] If Unable to Determine, please check the box, sign and date. Present On Admission (POA) Indicator: [] Present at the time of admission [] Not present at the time of admission [] Clinically Undetermined In responding to this query, please exercise your independent professional judgment. The fact that a question is asked does not imply that any particular answer is desired or expected. Thank you for your clarification on this documentation. 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
== END 2017-01-20 18:20 | disposition home or self-care (01) | DRG 203 ==
LOC: C.ER 11:52 → C.9E 17:37 → OBSVTOIN 20:14 → C.6T 21:26
PROVIDERS: ADMIT Internal Medicine Nephrology; ATTEND Internal Medicine Nephrology
DX: J20.9 Acute bronchitis, unspecified (principal); I10 Essential (primary) hypertension; E87.6 Hypokalemia; D72.825 Bandemia; M54.5 Low back pain

== ENCOUNTER 2017-05-11 09:53 | Emergency (ER) | payer BC ==
[2017-05-11 09:59] VITALS: BMI 41.0
[2017-05-11 10:02] VITALS: RESP 18; TEMP 98
--- NOTE | 2017-05-11 10:16 | C.PDOC ---
History Of Present Illness 47yo female with past medical history of hypertension, presents to the ED for evaluation of bilateral lower leg swelling, with the right leg greater than left. Patient reports for the past 2 days, she noticed her right foot was swollen and had pain to thigh and lateral calf, and states today she noticed her left foot was swollen, causing her concern and prompting her visit today. She states the swelling in her right foot has gotten better but is not completely resolved. The patient additionally reports she has not missed any doses of her water pills or her hypertension medications and denies any changes in her medications. She reports she is able to walk without issue and denies any chest pain, shortness of breath, calf pain, numbness, tingling or chills. She offers no additional medical complaints. Time Seen by Provider: 05/11/17 10:05 Chief Complaint (Nursing): Lower Extremity Problem/Injury History Per: Patient History/Exam Limitations: no limitations Onset/Duration Of Symptoms: Days (2) Current Symptoms Are (Timing): Still Present Severity: Moderate Recent travel outside of the [place]: No Additional History Per: Patient Past Medical History Reviewed: Historical Data, Nursing Documentation, Vital Signs Vital Signs: Last Vital Signs Temp 98 F 05/11/17 12:06 Pulse 80 05/11/17 12:06 Resp 18 05/11/17 12:06 BP 136/84 05/11/17 12:06 Pulse Ox 98 05/11/17 12:06 - Medical History PMH: Gastritis, HTN Denies: CHF, Deep Vein Thrombosis, Malignancy Surgical History: Cholecystectomy Family History: States: Unknown Family Hx - Social History Hx Tobacco Use: No Hx Alcohol Use: No Hx Substance Use: No - Immunization History Hx Tetanus Toxoid Vaccination: No Hx Influenza Vaccination: No Hx Pneumococcal Vaccination: No Review Of Systems Constitutional: Negative for: Chills Cardiovascular: Negative for: Chest Pain Respiratory: Negative for: Shortness of Breath Musculoskeletal: Positive for: Other (bilateral foot swelling, no calf pain) Neurological: Negative for: Weakness, Numbness Physical Exam - Physical Exam Additional Physical Exam Comments: Constitutional: No acute distress. Obese. Head: Normocephalic. Atraumatic. Cardiovascular: Regular rate and rhythm. No murmur. Chest: No tenderness. Respiratory: Clear to auscultation bilaterally. No rales. No rhonchi. No wheezing. Musculoskeletal: DP pulses 2+. Bilateral pitting edema of lower extremities 1/ 2. Bilateral foot swelling, right foot greater than left. No calf tenderness. Negative Esther's sign. Skin: No rash. No warmth. No erythema. Neurologic: Alert, no focal deficit. ED Course And Treatment O2 Sat by Pulse Oximetry: 96 Medical Decision Making Medical Decision Making: Impression: Morbidly obese female with bilateral ankle swelling, right greater than left. Complaint with medications. Non-smoker, no cancer history, no prolonged immobilization. Plan: -- DDimer to r/o DVT Disposition - Disposition Referrals: Arnav Marquez MD [Staff Provider] - Disposition: HOME/ ROUTINE Disposition Time: 11:54 Condition: STABLE Additional Instructions: Keep feel elevated when possible. Follow up with Dr Marquez tomorrow. Return to ER for any worse swelling,.chest pain, shortness of breath or any other concerning symptoms. Instructions: Leg Edema (ED) Forms: General Discharge Instructions, [facility] (Serbian), Work Excuse - Clinical Impression Clinical Impression: Pedal edema - Scribe Statement The provider has reviewed the documentation as recorded by the Rocibniki Oconnell All medical record entries made by the Rocibniki were at my direction and personally dictated by me. I have reviewed the chart and agree that the record accurately reflects my personal performance of the history, physical exam, medical decision making, and the department course for this patient. I have also personally directed, reviewed, and agree with the discharge instructions and disposition.
[2017-05-11 12:07] VITALS: BP 136/84; PULSE 80
[2017-05-11 21:47] VITALS: O2SAT 96
== END 2017-05-11 12:06 | disposition home or self-care (01) ==
LOC: C.ER 09:53
DX: R60.0 Localized edema (principal)

== ENCOUNTER 2018-01-07 07:45 | Emergency (ER) | payer BC ==
[2018-01-07 07:46] VITALS: BMI 41.0
[2018-01-07 08:01] VITALS: PULSE 70; O2SAT 98
--- NOTE | 2018-01-07 09:18 | C.PDOC ---
History Of Present Illness 47 year old female presents to the emergency department with complaints of left shoulder pain persisting for the last three days. Patient states that she has neck problems for which she is currently undergoing therapy. Patient states that she developed left shoulder pain denies any injury, stating that the pain radiates down her arm and she is experiencing tingling in her fingers. Patient states her pain is worse with movement. 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 Patient also denies chest pain , shortness of breath, and fever. Time Seen by Provider: 01/07/18 08:07 Chief Complaint (Nursing): Upper Extremity Problem/Injury History Per: Patient History/Exam Limitations: no limitations Onset/Duration Of Symptoms: Days (3) Current Symptoms Are (Timing): Still Present Quality: "Pain" Exacerbating Factor(s): Movement Past Medical History Reviewed: Historical Data, Nursing Documentation, Vital Signs Vital Signs: Last Vital Signs Temp 98.5 F 01/07/18 09:10 Pulse 70 01/07/18 09:10 Resp 16 01/07/18 09:10 BP 155/92 H 01/07/18 09:10 Pulse Ox 98 01/07/18 11:23 - Medical History PMH: Gastritis, HTN Denies: CHF, Deep Vein Thrombosis, Malignancy Surgical History: Cholecystectomy Family History: States: No Known Family Hx - Social History Hx Tobacco Use: No Hx Alcohol Use: No Hx Substance Use: No - Immunization History Hx Tetanus Toxoid Vaccination: No Hx Influenza Vaccination: No Hx Pneumococcal Vaccination: No Review Of Systems Except As Marked, All Systems Reviewed And Found Negative. Constitutional: Negative for: Fever Cardiovascular: Negative for: Chest Pain Respiratory: Negative for: Shortness of Breath Musculoskeletal: Positive for: Neck Pain, Arm Pain Neurological: Positive for: Other (tingling in the fingers ) Physical Exam - Physical Exam Appears: Non-toxic, No Acute Distress Skin: Normal Color, Warm Head: Atraumatic, Normacephalic Eye(s): bilateral: Normal Inspection Neck: Normal, No Midline Cervical Tenderness, Paracervical Tenderness, Supple Chest: No Tenderness Extremity: No Normal ROM (decreased range of motion secondary to pain), Tenderness (diffuse tenderness of left shoulder), No Deformity, No Swelling Neurological/Psych: Oriented x3, Normal Speech, Normal Cognition ED Course And Treatment ECG: Interpreted By Me, Viewed By Me ECG Rhythm: Sinus Rhythm (71bpm) ECG Interpretation: No Acute Changes Interpretation Of ECG: Normal sinus rhythm, no ST/T changes Rate From EC O2 Sat by Pulse Oximetry: 98 - Other Rad XR Left Shoulder X-Ray: Viewed By Me, Read By Radiologist Interpretation: PROCEDURE: Radiographs of the Left Shoulder. HISTORY: left shoulder pain. COMPARISON: No prior. FINDINGS: BONES: No acute fracture. Nonspecific area of cortical irregularity along the proximal humeral diaphysis. JOINTS: Unremarkable. SOFT TISSUES: Normal. OTHER FINDINGS: None. IMPRESSION: No demonstrated fracture or dislocation. Nonspecific area of cortical irregularity along the proximal humeral diaphysis. Dedicated radiographs of the humerus can be obtained for further evaluation as clinically warranted. XR C-Spine X-Ray: Viewed By Me, Read By Radiologist Interpretation: PROCEDURE: Cervical Spine Radiographs. HISTORY: Pain. COMPARISON: None. FINDINGS: BONES: Alignment maintained. No fracture. Dens Intact. DISC SPACES: Normal. SOFT TISSUES: Normal. No prevertebral soft tissue swelling. OTHER FINDINGS: None. IMPRESSION: Normal cervical spine radiographs Progress Note: Patient referred to follow up with orthopedics. Patient is clear for discharge with a prescription for Ibuprofen. Disposition - Disposition Referrals: Donal Zapata III, MD [Staff Provider] - Disposition: HOME/ ROUTINE Disposition Time: 09:15 Condition: STABLE Additional Instructions: Follow up with Orthopedist within 1-2 days. Return to ED if feel worse. Prescriptions: Ibuprofen [Motrin Tab] 600 mg PO Q8 #30 tab Instructions: Neck Pain, Shoulder Pain (DC) Forms: [facility] (Luxembourger), Work Excuse - Clinical Impression Clinical Impression: Cervical radiculopathy, Shoulder pain - PA / GARMENT PRESSER / Resident Statement MD/DO has reviewed & agrees with the documentation as recorded. - Scribe Statement The provider has reviewed the documentation as recorded by the Scribe (Pablo Abreuvi) All medical record entries made by the Scribe were at my direction and personally dictated by me. I have reviewed the chart and agree that the record accurately reflects my personal performance of the history, physical exam, medical decision making, and the department course for this patient. I have also personally directed, reviewed, and agree with the discharge instructions and disposition.
[2018-01-07 09:32] VITALS: BP 155/92; RESP 16; TEMP 98.5
--- NOTE | 2018-01-07 09:40 | RAD ---
PROCEDURE: Cervical Spine Radiographs. HISTORY: Pain. COMPARISON: None. FINDINGS: BONES: Alignment maintained. No fracture. Dens Intact. DISC SPACES: Normal. SOFT TISSUES: Normal. No prevertebral soft tissue swelling. OTHER FINDINGS: None. IMPRESSION: Normal cervical spine radiographs
--- NOTE | 2018-01-07 09:40 | RAD ---
PROCEDURE: Radiographs of the Left Shoulder HISTORY: left shoulder pain COMPARISON: No prior. FINDINGS: BONES: No acute fracture. Nonspecific area of cortical irregularity along the proximal humeral diaphysis. JOINTS: Unremarkable. SOFT TISSUES: Normal. OTHER FINDINGS: None. IMPRESSION: No demonstrated fracture or dislocation. Nonspecific area of cortical irregularity along the proximal humeral diaphysis. Dedicated radiographs of the humerus can be obtained for further evaluation as clinically warranted.
--- NOTE | 2018-01-08 22:41 | CARD ---
APPROVED REPORT EKG Measurement Heart [id number] <Conclusion> Normal sinus rhythm Normal ECG
== END 2018-01-07 09:53 | disposition home or self-care (01) ==
LOC: C.ER 07:45
DX: M54.12 Radiculopathy, cervical region (principal); M25.512 Pain in left shoulder; I10 Essential (primary) hypertension